=== PATIENT | male | born 1995 | race Caucasian/White ===

== ENCOUNTER 2021-04-19 19:54 | Emergency (ER) | payer OTHER, SELFPAY ==
[2021-04-19 21:03] VITALS: BP 136/80; PULSE 103; RESP 18; TEMP 38; O2SAT 100; BMI 22.4
[2021-04-19 21:48] LABS: COVID-19 Test Negative (Negative); IDNOW Serial# 9DD0AD1C
[2021-04-19 23:29] VITALS: BP 136/80; PULSE 98; RESP 18; O2SAT 100
--- NOTE | 2021-04-20 00:49 | ED_ITS ---
HPI - General Adult General Chief complaint: Upper Respiratory Symptoms Stated complaint: flu like Time Seen by Provider: 04/20/21 00:39 Source: patient Mode of arrival: ambulatory Limitations: no limitations History of Present Illness HPI narrative: 26-year-old male who presents emergency department for evaluation of fever, sore throat, body aches, shortness of breath dyspnea on exertion and fatigue. The patient states that he has been sick for approximately 1 day. He states that he has diffuse body aches. He states he is feeling fatigued. He also is complaining of a sore throat. He states that the pain in his throat is constant and is worse with swallowing, the pain is moderate in intensity. He is having no difficulty swallowing his secretions. The patient had a fever of 100.4? F at home he denied rhinorrhea. The patient is currently in quarantine for [employer]. He had a negative COVID test 04/14/2021. Related Data Previous Rx's Medication Instructions Recorded azithromycin 250 mg tablet See Rx Instructions .ROUTE 04/20/21 (Zithromax Z-Giovanni) .COMPLEX #6 tab Allergies Allergy/AdvReac Type Severity Reaction Status Date / Time amoxicillin Allergy Anaphylaxis Verified 04/19/21 21:08 Review of Systems Review of Systems: Yes all other systems are reviewed and are negative [facility] Past Medical History [facility] Narrative: Past medical history: None. Past surgical history: None. Social history: He denies tobacco use. He denies alcohol use. He denies drug use. Medical History (Updated 04/20/21 @ 00:56 by Derek Villeda MD) No acute medical problems Surgical History (Updated 04/19/21 @ 21:06 by Charis Box) Hx of tympanostomy tubes Social History Social History Alcohol intake: never Patient Tobacco Use Status: Never used Tobacco Use of substances other than those prescribed or required for medical reasons: No Advance Directives: No Advance Directives Information Provided: Yes Physical Exam Vital Signs: Vital Signs: Last Vital Signs Temp 100.4 F 04/19/21 21:03 Pulse 98 04/19/21 23:29 Resp 18 04/19/21 23:29 BP 136/80 04/19/21 23:29 Pulse Ox 100 04/19/21 23:29 Body Mass Index 22.4 Const: General: cooperative and no acute distress Orientation/consciousness: oriented to person and oriented to place Limitations: no limitations HENMT: Head: Yes normal to inspection, Yes normocephalic and Yes atraumatic Ears: external ears normal General nose exam: Normal external nose present Face and sinus: Yes normal facial exam Mouth: Normal oral and palatal mucosa present Throat: Yes posterior oropharynx normal Eyes: General: appearance normal, both eyes and all related structures Pupils: Equal, round and reactive pupils present Neck: Neck: Yes normal visual inspection, Yes no lymphadenopathy, Yes trachea midline and Yes supple Chest: Chest palpation & inspection: normal inspection of the chest and normal palpation of entire chest wall Resp: Effort & Inspection: normal respiratory effort and able to speak in complete sentences Auscultation: clear to auscultation bilaterally Cardio: Rate: regular rate Rhythm: regular rhythm Heart sounds: S1 normal heart sound present, S2 normal heart sound present and no murmurs GI: Inspection: Yes normal to inspection Palpation (GI): Soft to palpation, nontender and no guarding Auscultation: normal bowel sounds : General: Yes no CVA tenderness Back/Spine/Pelvis: Back: no CVA tenderness Skin: General skin exam: no rashes or lesions noted Neuro: General: oriented to person and oriented to place Cranial nerves: Yes CN's II-XII intact bilaterally and Yes Equal, round and reactive pupils present Cognition (Neuro): normal cognition Motor exam (neuro): 5/5 motor strength present throughout Extrem: General: Yes normal to inspection Psych: Appearance: grossly normal Speech and movement: Normal speech and movement present Affect: normal affect Attitude: cooperative Thought process: Normal thought process present Thought content: Normal thought content present Course Course Course Narrative: 26-year-old male who presents emergency department for evaluation of viral-like illness with symptoms including sore throat, body aches, fever, dyspnea on exertion and fatigue. Vital signs were normal. Patient's physical examination was unremarkable. COVID-19 test was negative. Rapid strep test is pending. Patient will be discharged home and I will contact him with the strep test. The patient was advised to take ibuprofen Tylenol for his pain. The patient was given verbal and printed instructions prior to discharge. The patient was advised to follow-up with his PCP in 2 days and to return to the emergency department if his symptoms get worse or if he develops any new symptoms that are concerning to him. Medical Decision Making Lab Data Labs: Lab Results 04/19/21 Range/Units 21:22 COVID-19 ([facility]) Negative (Negative) COVID-19 Clin Com See Note Discharge Plan Discharge Clinical Impression: Acute viral syndrome Pharyngitis Qualifiers: Pharyngitis/tonsillitis etiology: other specified organisms Qualified Code(s): J02.8 - Acute pharyngitis due to other specified organisms Patient Disposition: Home, Self-Care Instructions: Pharyngitis (ED) Additional Instructions: Your examination at this time was unremarkable. Your COVID-19 test was negative. Your rapid strep test is pending and I will contact to with this result. I am giving a prescription for Zithromax Z-Giovanni. Do not get this prescription filled unless the rapid strep test is positive. Take ibuprofen 200 mg pills, 3 pills every 6 hours as needed for pain. Take Tylenol (acetaminophen) 500 mg pills, 2 pills every 4 to 6 hours as needed for pain. Follow-up with your doctor in 2 days. Please return to the emergency department if your symptoms get worse or if you develop any symptoms that are concerning to you. Prescriptions: New azithromycin [Zithromax Z-Giovanni] 250 mg tablet See Rx Instructions .ROUTE .COMPLEX Qty: 6 RF: 0
[2021-04-20 01:14] LABS: Strep A Nucleic Acid Negative (Negative)
[2021-04-20] MEDS: Ibuprofen 600 MG TABLET PO (01:22)
== END 2021-04-20 01:23 | disposition home or self-care (01) ==
PROVIDERS: Emergency Provider Emergency Medicine Emergency Medical Services; PCP Internal Medicine
DX: B34.9 Viral infection, unspecified (principal); J02.8 Acute pharyngitis due to other specified organisms; R50.9 Fever, unspecified; R06.00 Dyspnea, unspecified; Z20.822 Contact with and (suspected) exposure to COVID-19; Z79.899 Other long term (current) drug therapy
CPT/HCPCS: 36415; 87635; 87651; 99285

== ENCOUNTER 2024-07-09 19:41 | Emergency (ER) | payer OTHER, SELFPAY ==
--- NOTE | ~2024-07-09 | US_ITS ---
EXAMINATION: US TRIPLEX LOWER EXTREMITY, LEFT CLINICAL INFORMATION: Left lower extremity swelling following insect bite COMPARISON: None available. TECHNIQUE: Color-flow triplex imaging with spectral analysis and compression Doppler were performed on the left lower extremity. FINDINGS: Respiratory variation, normal compression and augmented flow are noted throughout the left lower extremity. The visualized common femoral vein, superficial femoral vein, profunda femoral vein, popliteal vein and midcalf peroneal and posterior tibial venous segments show no evidence of deep venous thrombosis. There is no Wong's cyst. There is lymph node measured 1.8 cm in the left groin US/US venous duplex LE LT IMPRESSION: No evidence of deep venous thrombosis involving the left lower extremity. Reactive appearing lymph node in left groin Electronically signed by: Emily Martinez MD 07/09/2024 09:10 PM EDT
[2024-07-09 19:44] VITALS: BP 115/86; PULSE 112; RESP 18; TEMP 37.2; O2SAT 97; BMI 29.3
--- NOTE | 2024-07-09 19:46 | ED_ITS ---
HPI - General Adult General Chief complaint: Skin/Abscess/Foreign Body Stated complaint: ? insect bite-left calf Time Seen by Provider: 07/10/24 00:44 Source: patient Mode of arrival: ambulatory Limitations: no limitations History of Present Illness HPI narrative: Patient is a 29-year-old male who presents emergency department for evaluation of concern for an infected insect bite to his proximal posterior left calf. Reports onset approximately 1 week ago started as 2 small puncture lindsay. Over the past 2 days he has experienced redness swelling and pain. Denies any known insect bite or possible tick exposure. No recent travel. Denies drug or alcohol usage. Denies additional skin rashes wounds or lesions. Denies associated chest pain or shortness of breath. Related Data Previous Rx's ?Medication ?Instructions ?Recorded azithromycin 250 mg tablet See Rx Instructions PO .COMPLEX #6 04/20/21 (Zithromax Z-Giovanni) tabs cephalexin 500 mg capsule 500 mg PO QID #27 caps 07/10/24 doxycycline hyclate 100 mg capsule 100 mg PO BID #13 caps 07/10/24 Allergies Allergy/AdvReac Type Severity Reaction Status Date / Time amoxicillin Allergy Anaphylaxis Verified 07/09/24 19:48 Review of Systems 2 Review of Systems: Yes all other systems are reviewed and are negative PMFSH Past Medical History Attestation statement: The following information was validated with the patient. Source: old records reviewed Medical History No acute medical problems Surgical History Hx of tympanostomy tubes Social History Social History Alcohol intake: never Patient Tobacco Use Status: Never used Tobacco Do you have a plan to hurt others: No Plan Physical Exam ED Vital Signs: Vital Signs - 24 hr 07/09/24 19:44 Temperature 98.9 F Pulse Rate 112 H Respiratory Rate 18 Blood Pressure 115/86 Pulse Oximetry 97 Oxygen Delivery Method Room Air BMI result Body Mass Index 29.3 Appearance: Alert.?Oriented to person, place and time. No acute distress.?Normal affect. Neck: Normal inspection.? Neck supple.?? CVS: Heart sounds normal. Normal heart rate and rhythm.? Pulses normal.?? Respiratory: No respiratory distress.? Lung sounds clear to auscultation bilaterally?? Abdomen: Soft and non-tender. Normoactive bowel sounds. ? Skin: Skin warm and dry.? Normal skin color.? The following is a photograph of the left posterior proximal calf Extremities: No lower extremity edema.? Positive proximal left calf ttp?. 2+ DP/PT pulse bilaterally Neuro: Moves all extremities spontaneously. Sensation intact bilaterally. Ambulates with normal steady gait. Course Course Course Narrative: RME performed by Chelsi Clifford PA-C. Patient is a 29 year old assigned male at presenting to the emergency department with left lower leg pain. Patient states that last week he thought he was bit by a bug and now he is having significant left lower leg swelling. Detailed physical exam and review of systems are deferred to the rivet catcher. Labs and imaging ordered. Patient placed back in the waiting room pending room availability and results. Medical Decision Making Medical Decision Making [facility] Narrative: Patient is a 29-year-old male presents emergency department concern for an infected bug bite to the left calf as per HPI. Overall he appears well, afebrile. Arrived with mild tachycardia though this may be in part due to pain. He is ambulatory with a steady gait. Denying recent flu-like symptoms. He does have proximal calf tenderness on evaluation, venous duplex ultrasound was obtained in his without evidence of DVT. The cellulitic area was marked with a skin marker, I do not appreciate any area of fluctuance to suggest an abscess and none was seen on imaging. Serum labs reveal a mild leukopenia 3.7 monocytes 13.4, no left shift. ESR is within normal range, CRP elevated at 6.9. AST and ALT 77/157 no prior available for review, no right upper quadrant tenderness upon palpation, nausea or vomiting. Tick-borne illness and Lyme serologies are pending. Provider with strict return precautions, follow-up for progressive symptoms. Differential Diagnosis Differential Diagnoses: The differential diagnosis associated with the presentation includes (See narrative above) Admission/Observation Consideration of admission/observation: Escalation of care including admission/observation considered Lab Data [facility] Lab Attestation statement: I reviewed the patient's lab results. (See narrative) 07/09/24 19:56 07/09/24 19:56 Labs: Lab Results 07/09/24 Range/Units 19:56 WBC 3.7 L (4.8-10.8) X10*3/uL RBC 4.69 (4.60-5.80) X10*6/uL Hgb 14.4 (14.0-18.0) g/dl Hct 41.3 L (42.0-52.0) % MCV 88.1 (80.0-98.0) fL MCH 30.7 (27.0-33.0) pg MCHC 34.9 (31.0-36.0) g/dl RDW 12.3 (11.0-16.0) % Plt Count 171 (160-400) X10*3/uL MPV 9.6 (9.4-12.4) fL Immature Gran % (Auto) 0.5 H (0.0-0.4) % Neut % (Auto) 58.7 (45-73) % Lymph % (Auto) 22.3 (20-40) % [place] % (Auto) 13.4 H (2-11) % Eos % (Auto) 4.3 H (0-4) % Baso % (Auto) 0.8 (0-2) % Lymph # (Auto) 0.8 L (1.2-4.9) X10*3/uL [place] # (Auto) 0.5 (0.1-1.2) X10*3/uL Eos # (Auto) 0.2 (0.0-0.4) X10*3/uL Baso # (Auto) 0.0 (0.0-0.2) X10*3/uL Abs Immat Gran (auto) 0.02 (0.00-0.03) X10*3/uL Absolute Neuts (auto) 2.2 (2.0-8.3) x10*3/uL Absolute Nucleated RBC 0.000 (0.0-0.012) X10*3/uL Nucleated RBC % (auto) 0.0 (0.0-0.2) /100WBC ESR 14 (0-15) MM/HR Sodium 142 (135-145) mmol/L Potassium 3.7 (3.3-5.1) mmol/L Chloride 105 (96-108) mmol/L Carbon Dioxide 27 (22-29) mmol/L Anion Gap 14 (12-20) BUN 11 (9-16) mg/dL Creatinine 0.87 (0.5-1.4) mg/dL Estim Creat Clear Calc 157.6 Estimated GFR > 60 Random Glucose 101 (60-115) mg/dL Calcium 8.9 (8.4-10.2) mg/dL Magnesium 2.1 (1.6-2.6) mg/dL Total Bilirubin 0.6 (0.0-1.0) mg/dL AST 77 H (5-37) U/L ALT 157 H (0-40) U/L Alkaline Phosphatase 109 (39-117) U/L C-Reactive Protein 6.09 H (< or = 0.50) mg/dL Total Protein 7.2 (6.5-8.0) g/dL Albumin 4.4 (3.5-5.0) g/dL Radiology Impression Discussion of test interpretation with radiology: I have reviewed the radiologist's reading. Radiologist Impression: US/US venous duplex LE LT IMPRESSION: No evidence of deep venous thrombosis involving the left lower extremity. Reactive appearing lymph node in left groin External Record Review External record reviewed: Outpatient record Prescription Management I considered prescription management with: Pain Medication and Antibiotic Discharge Plan Discharge Clinical Impression: Cellulitis Patient Disposition: Home, Self-Care Instructions: Cellulitis (ED) Additional Instructions: Complete the entire course of antibiotics as prescribed, do not skip any doses or stopped taking early even if you begin to feel better. As discussed, she noticed significant progression passed the area that is marked despite taking antibiotics you should seek re-evaluation. Additionally if you have new or worsening symptoms or concerns you may return to emergency department for re-evaluation. If your blood tests for tick-borne illness result with any positive findings you will receive a phone call from the hospital. You can take ibuprofen 200 mg, 3 tablets (600mg) every 6-8 hours as needed for pain, in addition to Tylenol 500 mg, 2 tablets (1,000mg) every 4-6 hours as needed for pain, but not to exceed 3 doses daily (3,000mg).? Prescriptions: New cephalexin 500 mg capsule 500 mg PO QID Qty: 27 0RF doxycycline hyclate 100 mg capsule 100 mg PO BID Qty: 13 0RF No Action azithromycin [Zithromax Z-Giovanni] 250 mg tablet See Rx Instructions .ROUTE .COMPLEX Qty: 6 0RF Rx Instructions: take 500 mg today (day 1), then 250 mg for 4 days (days 2-5) Referrals: Randell Burgess MD [Primary Care Provider] - Print Language: Liberian
[2024-07-09 20:07] LABS: Basophils Percent Auto 0.8 % (0-2); Eosinophils Absolute Auto 0.2 X10*3/uL (0.0-0.4); Eosinophils Percent Auto 4.3 % (0-4); Hematocrit 41.3 % (42.0-52.0); Hemoglobin 14.4 g/dl (14.0-18.0); Imm Gran Abs Auto 0.02 X10*3/uL (0.00-0.03); Imm Gran Pct Auto 0.5 % (0.0-0.4); Lymphocytes Absolute Auto 0.8 X10*3/uL (1.2-4.9); Lymphocytes Percent Auto 22.3 % (20-40); MANUAL DIFF FLAG NO; Mean Corpuscular HGB Conc 34.9 g/dl (31.0-36.0); Mean Corpuscular Hemoglobin 30.7 pg (27.0-33.0); Mean Corpuscular Volume 88.1 fL (80.0-98.0); Mean Platelet Volume 9.6 fL (9.4-12.4); Monocytes Absolute Auto 0.5 X10*3/uL (0.1-1.2); Monocytes Percent Auto 13.4 % (2-11); Neutrophils Absolute Auto 2.2 x10*3/uL (2.0-8.3); Neutrophils Percent Auto 58.7 % (45-73); Platelet Count 171 X10*3/uL (160-400); Red Blood Count 4.69 X10*6/uL (4.60-5.80); Red Cell Distribution Width 12.3 % (11.0-16.0); White Blood Count 3.7 X10*3/uL (4.8-10.8)
[2024-07-09 20:24] LABS: Alanine Aminotransferase 157 U/L (0-40); Albumin Level 4.4 g/dL (3.5-5.0); Alkaline Phosphatase 109 U/L (39-117); Anion Gap 14 (12-20); Aspartate Amino Transferase 77 U/L (5-37); Bilirubin Total 0.6 mg/dL (0.0-1.0); Blood Urea Nitrogen 11 mg/dL (9-16); C Reactive Protein 6.09 mg/dL (< or = 0.50); Calcium 8.9 mg/dL (8.4-10.2); Carbon Dioxide 27 mmol/L (22-29); Chloride 105 mmol/L (96-108); Creatinine Clr Calc Pharmacy 157.6; Estimated Glomerular Filt Rate > 60; Glucose Random 101 mg/dL (60-115); Magnesium 2.1 mg/dL (1.6-2.6); Potassium 3.7 mmol/L (3.3-5.1); Sodium 142 mmol/L (135-145); Total Protein 7.2 g/dL (6.5-8.0)
[2024-07-09 21:38] LABS: Erythrocyte Sedimentation Rate 14 MM/HR (0-15)
[2024-07-10] MEDS: cephALEXin 500 MG CAPSULE PO (01:25)
[2024-07-10] MEDS: Doxycycline Monohydrate 100 MG CAPSULE PO (01:25)
[2024-07-10 02:27] VITALS: BP 121/74; PULSE 99; RESP 16; TEMP 36.9; O2SAT 98
[2024-07-12 01:28] LABS: Lyme Abs Screen <0.90 index
[2024-07-13 00:08] LABS: A. Phagocytphilium DNA,RT-PCR NOT DETECTED (NOT DETECTED); Babesia Microti DNA, RT-PCR NOT DETECTED (NOT DETECTED); Borrelia Miyamotoi,DNA RT-PCR NOT DETECTED (NOT DETECTED); E.Chaffeensis DNA RT-PCR NOT DETECTED (NOT DETECTED); Lyme(Borrelia ssp)DNA RT-PCR NOT DETECTED (NOT DETECTED)
== END 2024-07-10 02:28 | disposition home or self-care (01) ==
PROVIDERS: Physician Assistant Medical; Emergency Provider Internal Medicine
DX: L03.116 Cellulitis of left lower limb (principal); R60.0 Localized edema; R00.0 Tachycardia, unspecified; Z79.899 Other long term (current) drug therapy
CPT/HCPCS: 36415; 80053; 83735; 85025; 85652; 86140; 86617; 86618; 87468; 87469; 87478; 87484; 87798; 93971; 99284